=== PATIENT | male | born 1945 | race Caucasian/White ===

== ENCOUNTER 2023-10-07 10:34 | Outpatient (CLI) | payer MEDICARE | END 2023-10-07 10:35 | disposition home or self-care (01) | LOC: CSHWCC 10:34 | PROVIDERS: ATTEND Nurse Practitioner Family | DX: C61 Malignant neoplasm of prostate (principal); N30.41 Irradiation cystitis with hematuria ==

== ENCOUNTER 2025-01-08 12:30 | Outpatient (CLI) | payer MEDICARE | END 2025-01-08 12:31 | LOC: CSHWCC 12:30 | PROVIDERS: ATTEND Nurse Practitioner Family | DX: N30.41 Irradiation cystitis with hematuria (principal); C61 Malignant neoplasm of prostate; N39.46 Mixed incontinence; L59.8 Other specified disorders of the skin and subcutaneous tissue related to radiation | CPT/HCPCS: 99212; G0463 ==

== ENCOUNTER 2025-01-08 14:21 | Outpatient (CLI) | payer MEDICARE | END 2025-01-08 14:22 | disposition home or self-care (01) | LOC: CSHRAD 14:21 | PROVIDERS: ATTEND Nurse Practitioner Family | DX: Z01.818 Encounter for other preprocedural examination (principal); N30.41 Irradiation cystitis with hematuria; I51.7 Cardiomegaly | CPT/HCPCS: 71046 ==

== ENCOUNTER 2025-01-19 08:03 | Outpatient (CLI) | payer MEDICARE | END 2025-01-19 08:04 | disposition home or self-care (01) | LOC: CSHWCC 08:03 | PROVIDERS: ATTEND Nurse Practitioner Family | DX: N30.41 Irradiation cystitis with hematuria (principal); L59.8 Other specified disorders of the skin and subcutaneous tissue related to radiation; C61 Malignant neoplasm of prostate; N39.46 Mixed incontinence | CPT/HCPCS: G0277 ==

== ENCOUNTER 2025-01-20 08:08 | Outpatient (CLI) | payer MEDICARE | END 2025-01-20 08:09 | disposition home or self-care (01) | LOC: CSHWCC 08:08 | PROVIDERS: ATTEND Nurse Practitioner Family | DX: N30.41 Irradiation cystitis with hematuria (principal); L59.8 Other specified disorders of the skin and subcutaneous tissue related to radiation; C61 Malignant neoplasm of prostate; N39.46 Mixed incontinence ==

== ENCOUNTER 2025-01-22 08:18 | Outpatient (CLI) | payer MEDICARE | END 2025-01-22 08:19 | disposition home or self-care (01) | LOC: CSHWCC 08:18 | PROVIDERS: ATTEND Nurse Practitioner Family | DX: C61 Malignant neoplasm of prostate (principal); N30.41 Irradiation cystitis with hematuria; L59.8 Other specified disorders of the skin and subcutaneous tissue related to radiation; N39.46 Mixed incontinence | CPT/HCPCS: G0277 ==

== ENCOUNTER 2025-01-25 09:04 | Outpatient (CLI) | payer MEDICARE | END 2025-01-25 09:05 | disposition home or self-care (01) | LOC: CSHWCC 09:04 | PROVIDERS: ATTEND Nurse Practitioner Family | DX: N30.41 Irradiation cystitis with hematuria (principal); L59.8 Other specified disorders of the skin and subcutaneous tissue related to radiation; C61 Malignant neoplasm of prostate; N39.46 Mixed incontinence | CPT/HCPCS: G0277 ==

== ENCOUNTER 2025-01-29 08:06 | Outpatient (CLI) | payer MEDICARE | END 2025-01-29 08:07 | disposition home or self-care (01) | LOC: CSHWCC 08:06 | PROVIDERS: ATTEND Nurse Practitioner Family | DX: N30.41 Irradiation cystitis with hematuria (principal); L59.8 Other specified disorders of the skin and subcutaneous tissue related to radiation; C61 Malignant neoplasm of prostate; N39.46 Mixed incontinence | CPT/HCPCS: G0277 ==

== ENCOUNTER 2025-02-03 08:08 | Outpatient (CLI) | payer MEDICARE | END 2025-02-03 08:09 | disposition home or self-care (01) | LOC: CSHWCC 08:08 | PROVIDERS: ATTEND Nurse Practitioner Family | DX: N30.41 Irradiation cystitis with hematuria (principal); C61 Malignant neoplasm of prostate; N39.46 Mixed incontinence; L59.8 Other specified disorders of the skin and subcutaneous tissue related to radiation | CPT/HCPCS: G0277 ==

== ENCOUNTER 2025-02-04 08:03 | Outpatient (CLI) | payer MEDICARE | END 2025-02-04 08:04 | disposition home or self-care (01) | LOC: CSHWCC 08:03 | PROVIDERS: ATTEND Nurse Practitioner Family | DX: N30.41 Irradiation cystitis with hematuria (principal); L59.8 Other specified disorders of the skin and subcutaneous tissue related to radiation; C61 Malignant neoplasm of prostate; N39.46 Mixed incontinence | CPT/HCPCS: G0277 ==

== ENCOUNTER 2025-02-09 08:02 | Outpatient (CLI) | payer MEDICARE | END 2025-02-09 08:03 | disposition home or self-care (01) | LOC: CSHWCC 08:02 | PROVIDERS: ATTEND Nurse Practitioner Family | DX: C61 Malignant neoplasm of prostate (principal); N30.41 Irradiation cystitis with hematuria; L59.8 Other specified disorders of the skin and subcutaneous tissue related to radiation; N39.46 Mixed incontinence | CPT/HCPCS: G0277 ==

== ENCOUNTER 2025-02-17 10:36 | Outpatient (CLI) | payer MEDICARE | END 2025-02-17 10:37 | disposition home or self-care (01) | LOC: CSHWCC 10:36 | PROVIDERS: ATTEND Nurse Practitioner Family | DX: N30.41 Irradiation cystitis with hematuria (principal); L59.8 Other specified disorders of the skin and subcutaneous tissue related to radiation; C61 Malignant neoplasm of prostate; N39.46 Mixed incontinence | CPT/HCPCS: G0277 ==

== ENCOUNTER 2025-02-18 08:05 | Outpatient (CLI) | payer MEDICARE | END 2025-02-18 08:06 | disposition home or self-care (01) | LOC: CSHWCC 08:05 | PROVIDERS: ATTEND Nurse Practitioner Family | DX: C61 Malignant neoplasm of prostate (principal); N30.41 Irradiation cystitis with hematuria; L59.8 Other specified disorders of the skin and subcutaneous tissue related to radiation; N39.46 Mixed incontinence | CPT/HCPCS: G0277 ==

== ENCOUNTER 2025-02-19 08:10 | Outpatient (CLI) | payer MEDICARE | END 2025-02-19 08:11 | disposition home or self-care (01) | LOC: CSHWCC 08:10 | PROVIDERS: ATTEND Nurse Practitioner Family | DX: N30.41 Irradiation cystitis with hematuria (principal); L59.8 Other specified disorders of the skin and subcutaneous tissue related to radiation; C61 Malignant neoplasm of prostate; N39.46 Mixed incontinence | CPT/HCPCS: G0277 ==

== ENCOUNTER 2025-02-22 08:03 | Outpatient (CLI) | payer MEDICARE | END 2025-02-22 08:04 | disposition home or self-care (01) | LOC: CSHWCC 08:03 | PROVIDERS: ATTEND Nurse Practitioner Family | DX: C61 Malignant neoplasm of prostate (principal); N30.41 Irradiation cystitis with hematuria; L59.8 Other specified disorders of the skin and subcutaneous tissue related to radiation; N39.46 Mixed incontinence | CPT/HCPCS: G0277 ==

== ENCOUNTER 2025-02-23 08:30 | Outpatient (CLI) | payer MEDICARE | END 2025-02-23 08:31 | disposition home or self-care (01) | LOC: CSHWCC 08:30 | PROVIDERS: ATTEND Nurse Practitioner Family | DX: N30.41 Irradiation cystitis with hematuria (principal); L59.8 Other specified disorders of the skin and subcutaneous tissue related to radiation; C61 Malignant neoplasm of prostate; N39.46 Mixed incontinence | CPT/HCPCS: G0277 ==

== ENCOUNTER 2025-02-24 08:10 | Outpatient (CLI) | payer MEDICARE | END 2025-02-24 08:11 | disposition home or self-care (01) | LOC: CSHWCC 08:10 | PROVIDERS: ATTEND Nurse Practitioner Family | DX: N30.41 Irradiation cystitis with hematuria (principal); C61 Malignant neoplasm of prostate; N39.46 Mixed incontinence; L59.8 Other specified disorders of the skin and subcutaneous tissue related to radiation | CPT/HCPCS: G0277 ==

== ENCOUNTER 2025-02-26 08:30 | Outpatient (CLI) | payer MEDICARE | END 2025-02-26 08:31 | disposition home or self-care (01) | LOC: CSHWCC 08:30 | PROVIDERS: ATTEND Nurse Practitioner Family | DX: N30.41 Irradiation cystitis with hematuria (principal); L59.8 Other specified disorders of the skin and subcutaneous tissue related to radiation; C61 Malignant neoplasm of prostate; N39.46 Mixed incontinence | CPT/HCPCS: G0277 ==

== ENCOUNTER 2025-03-02 08:22 | Outpatient (CLI) | payer MEDICARE | END 2025-03-02 08:23 | disposition home or self-care (01) | LOC: CSHWCC 08:22 | PROVIDERS: ATTEND Nurse Practitioner Family | DX: N30.41 Irradiation cystitis with hematuria (principal); L59.8 Other specified disorders of the skin and subcutaneous tissue related to radiation; C61 Malignant neoplasm of prostate; N39.46 Mixed incontinence | CPT/HCPCS: G0277 ==

== ENCOUNTER 2025-03-03 08:10 | Outpatient (CLI) | payer MEDICARE | END 2025-03-03 08:11 | disposition home or self-care (01) | LOC: CSHWCC 08:10 | PROVIDERS: ATTEND Nurse Practitioner Family | DX: N30.41 Irradiation cystitis with hematuria (principal); C61 Malignant neoplasm of prostate; N39.46 Mixed incontinence; L59.8 Other specified disorders of the skin and subcutaneous tissue related to radiation | CPT/HCPCS: G0277 ==

== ENCOUNTER 2025-03-09 08:10 | Outpatient (CLI) | payer MEDICARE | END 2025-03-09 08:11 | disposition home or self-care (01) | LOC: CSHWCC 08:10 | PROVIDERS: ATTEND Nurse Practitioner Family | DX: N30.41 Irradiation cystitis with hematuria (principal); C61 Malignant neoplasm of prostate; L59.8 Other specified disorders of the skin and subcutaneous tissue related to radiation; N39.46 Mixed incontinence | CPT/HCPCS: G0277 ==

== ENCOUNTER 2025-03-16 08:10 | Outpatient (CLI) | payer MEDICARE | END 2025-03-16 08:11 | disposition home or self-care (01) | LOC: CSHWCC 08:10 | PROVIDERS: ATTEND Nurse Practitioner Family | DX: N30.41 Irradiation cystitis with hematuria (principal); L59.8 Other specified disorders of the skin and subcutaneous tissue related to radiation; C61 Malignant neoplasm of prostate; N39.46 Mixed incontinence | CPT/HCPCS: G0277 ==

== ENCOUNTER 2025-03-24 08:16 | Outpatient (CLI) | payer MEDICARE | END 2025-03-24 08:17 | disposition home or self-care (01) | LOC: CSHWCC 08:16 | PROVIDERS: ATTEND Nurse Practitioner Family | DX: C61 Malignant neoplasm of prostate (principal); N30.41 Irradiation cystitis with hematuria; L59.8 Other specified disorders of the skin and subcutaneous tissue related to radiation; N39.46 Mixed incontinence | CPT/HCPCS: G0277 ==

== ENCOUNTER 2025-03-25 09:06 | Outpatient (CLI) | payer MEDICARE | END 2025-03-25 09:07 | disposition home or self-care (01) | LOC: CSHWCC 09:06 | PROVIDERS: ATTEND Nurse Practitioner Family | DX: C61 Malignant neoplasm of prostate (principal); N30.41 Irradiation cystitis with hematuria; L59.8 Other specified disorders of the skin and subcutaneous tissue related to radiation; N39.46 Mixed incontinence ==

== ENCOUNTER 2025-04-05 08:14 | Outpatient (CLI) | payer MEDICARE, OTHER | END 2025-04-05 08:15 | disposition home or self-care (01) | LOC: CSHWCC 08:14 | PROVIDERS: ATTEND Nurse Practitioner Family | DX: N30.41 Irradiation cystitis with hematuria (principal); L59.8 Other specified disorders of the skin and subcutaneous tissue related to radiation; C61 Malignant neoplasm of prostate; N39.46 Mixed incontinence | CPT/HCPCS: G0277 ==